=== PATIENT | female | born 1980 | race Caucasian/White ===

== ENCOUNTER 2019-03-13 09:37 | Inpatient (IN) | payer MEDICAID ==
[~2019-03-13] VITALS: Ht 152.4 cm; Wt 72.2 kg
[~2019-03-13 09:37] MED LIST: DEPAKOTE; DEPO PROVERA; LORA-655; OLAN2.5T25; QUET25TA37; TOLT2CAP7; TRAZEDONE; ZOLOFT
[2019-03-13 11:28] LABS: Basophils # (auto) 0 uL; Eosinophils # (auto) 0 uL; Lymphocytes # (auto) 1.2 uL; Monocytes # (auto) 0.6 uL; Neutrophils # (auto) 3.9 uL; White Blood Cell 5.8 10^3/uL (4.4-10.8)
[2019-03-13 11:32] LABS: Basophils % (auto) 0.6 % (0.0-2.0); Hemoglobin 12.7 g/dL (12.2-16.2); Lymphocytes % (auto) 21.5 % (10.0-50.0); Mean Corpuscular Hemoglobin 35.4 pg (28.0-32.0); Mean Corpuscular Hgb Conc. 34.4 g/dL (32.0-36.0); Mean Corpuscular Volume 102.8 fL (80.0-100.0); Neutrophils % (auto) 67.9 % (37.0-80.0); Platelet Count (auto) 154 10^3/uL (140-450); Red Cell Distribution Width 12.6 % (11.8-14.3)
[2019-03-13 11:33] LABS: Urine Bacteria NONE SEEN /hpf (None Seen); Urine Blood Negative /uL (Negative); Urine Mucus FEW (None Seen); Urine Specific Gravity 1.012 (1.001-1.035); Urine WBC 6 /hpf (0 - 5)
[2019-03-13 11:46] LABS: Albumin 3.4 g/dL (3.4-5.0); Calcium 8.4 mg/dL (8.5-10.1); Potassium 3.4 mmol/L (3.5-5.1)
[2019-03-13 11:51] LABS: Bilirubin, Total 0.7 mg/dL (0.2-1.0); Total Protein 7.7 g/dL (6.4-8.2)
[2019-03-13] MEDS ORDERED: IOHEXOL 300 MG/ML 100ML BOTTLE IJ ONE (12:54)
[2019-03-13] MEDS ORDERED: SODIUM CHLORIDE 0.9% 1,000 ML IV ONE (14:00)
[2019-03-13] MEDS ORDERED: LEVOFLOXACIN 500MG 100 ML IV ONE (14:15)
[2019-03-13] MEDS ORDERED: metroNIDAZOLE 500MG/100ML 100 ML IV ONE (14:15)
--- NOTE | 2019-03-13 15:52 | NUR ---
Patient arrived from ER. No report received from ER. Patient is A & O x 4, has some mental delay. Patient c/o pain to the lower R quadrant. Patient has caregiver at bedside. Patient oriented to room, and visiting hours. Patient is ambulatory with min assistance. POC discussed with patient, will medicate per orders. Bed is in lowest, locked position, call light within reach. Vital signs stable, logged in patient chart. Will continue to monitor Q1h and PRN.
--- NOTE | 2019-03-13 16:40 | NUR ---
Dr. Torres called back for Surgical Consult. made aware of the Abd/Pelvis CT results. Dr. Torres ordered a GI Consult, then call him for follow up Surgical Consult.
[2019-03-13] MEDS ORDERED: OLAN10TA29 PO (17:07)
[2019-03-13] MEDS ORDERED: BENZ2TAB2 PO (17:07)
[2019-03-13] MEDS ORDERED: LORA0.5T12 PO (17:07)
[2019-03-13] MEDS ORDERED: SERT-274 PO (17:07)
[2019-03-13] MEDS ORDERED: TRAZ150T79 PO (17:07)
[2019-03-13] MEDS ORDERED: QUET200T44 PO (17:07)
[2019-03-13 17:12] VITALS: BP 118/71
[2019-03-13] MEDS: SOD CHL 0.9%/ KCL 20MEQ 1,000 ML IV SCH (17:44)
[2019-03-13] MEDS: MORPHINE SULF INJ 2 MG/ML SYRINGE 1ML IV PRN (17:52)
--- NOTE | 2019-03-13 18:45 | NUR ---
Patient IV infiltrated, mild erythema, will placed hot compress, and remove IV.
[2019-03-13] MEDS: ONDANSETRON HCL 4 MG/2 ML VIAL IV PRN (20:51)
[2019-03-13 22:00] VITALS: BP 114/84
[2019-03-14] VITALS (7 sets, daily range): BP systolic 111–129; BP diastolic 57–104
[2019-03-14] MEDS: SOD CHL 0.9%/ KCL 20MEQ 1,000 ML IV SCH ×3 (00:45→21:19)
[2019-03-14] MEDS: MORPHINE SULF INJ 2 MG/ML SYRINGE 1ML IV PRN ×4 (01:39→21:24)
[2019-03-14 06:47] LABS: INR 1.06 (0.9-1.15); Partial Thromboplastin Time 27.6 sec (23.64-32.05)
[2019-03-14 06:51] LABS: Magnesium 2.3 mg/dL (1.6-2.6)
[2019-03-14 06:53] LABS: Phosphorus 2.6 mg/dL (2.5-4.90)
--- NOTE | 2019-03-14 07:25 | NUR ---
Opening Shift Note Assumed care of patient, awake and alert. No S/S of distress/SOB or pain. Instructed on POC and to call for assist PRN, bed in lowest position and locked, call light kassandra reach. Will continue to monitor for changes Q1hr and PRN.
--- NOTE | 2019-03-14 12:00 | NUR ---
Dr. Orellana bedside with patient.
[2019-03-14] MEDS ORDERED: FAMOTIDINE (10MG/ML) 2ML VL IV ONE (12:30)
[2019-03-14] MEDS ORDERED: cefTRIAXone 1GM/50ML D5W 50 ML IV ONE (12:30)
--- NOTE | 2019-03-14 13:34 | NUR ---
[facility] [place] bedside with patient. Carried out orders as given.
[2019-03-14] MEDS ORDERED: CLINIMIX PER PHARMACY 0 ML IV SCH (14:00)
[2019-03-14] MEDS: ONDANSETRON HCL 4 MG/2 ML VIAL IV PRN ×2 (15:29→21:24)
[2019-03-14] MEDS: metroNIDAZOLE 500MG/100ML 100 ML IV SCH ×2 (16:29→22:00)
[2019-03-14] MEDS ORDERED: AMINO ACID INFUSION IN D10W 1,000 ML IV ONE (20:00)
[2019-03-15] MEDS ORDERED: DEXTROSE (50%) 50ML SYRG IV SCH
[2019-03-15] MEDS: ONDANSETRON HCL 4 MG/2 ML VIAL IV PRN ×4 (03:34→20:29)
[2019-03-15] MEDS: MORPHINE SULF INJ 2 MG/ML SYRINGE 1ML IV PRN ×4 (03:34→23:56)
[2019-03-15 05:00] VITALS: BP 111/65
[2019-03-15 05:39] LABS: Basophils # (auto) 0 uL; Basophils % (auto) 0.1 % (0.0-2.0); Eosinophils # (auto) 0 uL; Hematocrit 37.7 % (36.0-46.0); Lymphocytes # (auto) 1.5 uL; Lymphocytes % (auto) 34.6 % (10.0-50.0); Mean Corpuscular Hemoglobin 35.4 pg (28.0-32.0); Mean Corpuscular Hgb Conc. 34.4 g/dL (32.0-36.0); Mean Corpuscular Volume 102.7 fL (80.0-100.0); Monocytes # (auto) 0.3 uL; Monocytes % (auto) 7.6 % (0.0-12.0); Neutrophils # (auto) 2.5 uL; Neutrophils % (auto) 57.7 % (37.0-80.0); Platelet Count (auto) 191 10^3/uL (140-450); Red Blood Cells 3.67 10^6/uL (4.0-5.20); White Blood Cell 4.3 10^3/uL (4.4-10.8)
[2019-03-15] MEDS: ACCU-CHEK COMFORT CURVE STRIP VI SCH ×5 (05:54→23:47)
[2019-03-15] MEDS: InsuLIN REG 1unit/0.01ml Soln (100units/ml) SC SCH ×5 (05:55→23:46)
[2019-03-15] MEDS: metroNIDAZOLE 500MG/100ML 100 ML IV SCH ×3 (05:59→22:39)
[2019-03-15 06:02] LABS: Albumin 3.1 g/dL (3.4-5.0); Calcium 8.3 mg/dL (8.5-10.1); Magnesium 2.1 mg/dL (1.6-2.6); Potassium 3.8 mmol/L (3.5-5.1)
[2019-03-15 06:06] LABS: BUN/Creatinine Ratio 9.7; Bilirubin, Total 0.4 mg/dL (0.2-1.0); Phosphorus 2.7 mg/dL (2.5-4.90); Pre Albumin 17.4 mg/dL (20.0-40.0); Total Protein 7.5 g/dL (6.4-8.2)
[2019-03-15] MEDS: SOD CHL 0.9%/ KCL 20MEQ 1,000 ML IV SCH ×3 (06:45→20:00)
[2019-03-15 09:00] VITALS: BP 110/81
[2019-03-15] MEDS: FAMOTIDINE (10MG/ML) 2ML VL IV SCH (09:43)
[2019-03-15] MEDS: cefTRIAXone 1GM/50ML D5W 50 ML IV SCH (09:43)
--- NOTE | 2019-03-15 09:54 | NUR ---
Patient stated she's nauseous and her stomach pain level at 8/10 at this time. Zofran Inj given for nausea, Morphine Sulf Inj 2 mg given for pain.
--- NOTE | 2019-03-15 10:06 | NUR ---
Dr. Orellana at bedside. Patient wants to eat. MD ordered nothing by mouth except ice chips.
--- NOTE | 2019-03-15 10:58 | NUR ---
Patient's mother Apple came over, asking why the patient is still not allowed to eat. Explained to Apple that patient is allowed ice chips by mouth, on Clinimix drip and Potassium drip for rehydration. Apple is frustrated, wants to talk to the doctor.
--- NOTE | 2019-03-15 10:58 | NUR ---
Patient's stepfather Osmar said they need to talk to the doctor because patient has psych medications to take.
--- NOTE | 2019-03-15 10:59 | NUR ---
Paged Dr. Orellana.
--- NOTE | 2019-03-15 11:02 | NUR ---
Dr. Orellana called back. made aware the patient's mother Apple wants to talk to her. said she will come back in two hours. Will inform the mother.
--- NOTE | 2019-03-15 11:08 | NUR ---
Informed patient's mother Apple (P# [phone]) and stepfather Osmar (P# [phone]) that Dr. Orellana she will come back in two hours. Password: "[email or web address]"
--- NOTE | 2019-03-15 11:15 | NUR ---
Nutrition Consult/assessment Notes please see attached link for complete assessment Estimated need based on ABW (60 kg): 4964-6579 kcal (23-25 kcal/kg BW), 60-66 gms protein (1.0-1.1 g/kg BW). Will continue to monitor pertinent labs and reassess nutrient need prn Addendum: 03/15/19 at [address] Amended: Links added.
[2019-03-15] MEDS ORDERED: OMNIPAQUE ORAL SOLN 500ml 12mg/ml PO ONE (11:52)
[2019-03-15] MEDS ORDERED: IOHEXOL 300 MG/ML 100ML BOTTLE IJ ONE (11:52)
--- NOTE | 2019-03-15 12:12 | NUR ---
Assisted the patient with bedpan. Mother and stepfather at bedside.
[2019-03-15 13:00] VITALS: BP 119/84
--- NOTE | 2019-03-15 13:28 | NUR ---
Paged Dr. Orellana again.
--- NOTE | 2019-03-15 14:07 | NUR ---
Dr. Orellana said she will come over to speak with the family in 15 minutes. Informed the patient and family.
--- NOTE | 2019-03-15 14:07 | NUR ---
Spoke with Dr. Orellana that patient's mother Apple and stepfather Osmar are at bedside still waiting for her to come over.
--- NOTE | 2019-03-15 14:08 | NUR ---
Patient's mother Apple confirmed that patient takes the Benztropine, Lorazepam, Olanzapine, Quetiapine, Sertraline and Trazodone at [facility] where the patient resides. List of medications placed in the patient's chart.
--- NOTE | 2019-03-15 14:20 | NUR ---
Dr. Orellana at bedside speaking with the patient's mother Apple and stepfather Osmar. Family has concerns that patient is not getting the routine psych medications she takes at the facility because she's not allowed to eat yet at the hospital. MD explained that patient has to be kept on nothing by mouth, ice chips allowed, tests still being done as ordered and waiting for next plan of care as per [facility] for GI.
--- NOTE | 2019-03-15 14:38 | NUR ---
Patient off unit, taken via wheelchair to Radiology.
--- NOTE | 2019-03-15 15:27 | NUR ---
Zofran Inj given for nausea.
--- NOTE | 2019-03-15 16:01 | NUR ---
Patient stated her stomach and back pain level at 8/10 at this time. Morphine Sulf Inj 2 mg given for pain as ordered.
[2019-03-15 17:00] VITALS: BP 125/83
--- NOTE | 2019-03-15 17:00 | NUR ---
Patient requested that I call her father Laron ([phone]) and her stepmother Carmen ([phone]); both on voicemail. Did not leave a message. Informed the patient.
--- NOTE | 2019-03-15 17:08 | NUR ---
Caregiver Mary Ellen called. Mary Ellen said the lists of medications from the [facility] are the patient's routine medications at the facility. Patient still on nothing by mouth except ice chips. Mary Ellen said she will come over tomorrow to see the patient.
--- NOTE | 2019-03-15 19:30 | NUR ---
Opening Shift Note Assumed care of patient, awake and alert. No S/S of distress/SOB or pain. Bed in lowest locked position, side rails up x2, call light within reach, bed alarm on. Instructed on POC and to call for assist PRN, will continue to monitor for changes Q1hr and PRN.
[2019-03-15] MEDS ORDERED: CLINIMIX PER PHARMACY IV NR ×7 (20:00)
[2019-03-15 21:24] VITALS: BP 135/84
[2019-03-16 05:11] VITALS: BP 120/75
[2019-03-16 06:42] LABS: Albumin 3.2 g/dL (3.4-5.0); BUN/Creatinine Ratio 13.1; Calcium 8.2 mg/dL (8.5-10.1); Magnesium 2.1 mg/dL (1.6-2.6); Potassium 3.7 mmol/L (3.5-5.1)
[2019-03-16 06:44] LABS: Bilirubin, Total 0.4 mg/dL (0.2-1.0); Total Protein 7.7 g/dL (6.4-8.2)
[2019-03-16] MEDS: metroNIDAZOLE 500MG/100ML 100 ML IV SCH ×3 (07:02→21:50)
[2019-03-16] MEDS: ACCU-CHEK COMFORT CURVE STRIP VI SCH ×4 (07:02→23:50)
--- NOTE | 2019-03-16 07:05 | NUR ---
Closing Note Patient lying in bed, eyes closed, respirations even and unlabored, appears asleep. Patient awakens to name and touch. No s/s of distress. Bed in lowest locked position, side rails up x2, call light within reach. Care endorsed to dayshift RN.
--- NOTE | 2019-03-16 07:15 | NUR ---
Opening Shift Note Received report and assumed care of patient, awake and alert. No S/S of distress/SOB or pain. Bed in lowest locked position, side rails up x2, call light within reach, bed alarm on. Instructed on POC and to call for assist PRN, will continue to monitor for changes Q1hr and PRN.
[2019-03-16] MEDS: InsuLIN REG 1unit/0.01ml Soln (100units/ml) SC SCH ×4 (07:16→23:50)
--- NOTE | 2019-03-16 08:00 | NUR ---
patient incontinent with urine,patient instructed to call sooner if needing help or bed nogueira verbalized understanding
[2019-03-16] MEDS: SOD CHL 0.9%/ KCL 20MEQ 1,000 ML IV SCH ×2 (08:30→12:08)
[2019-03-16 09:00] VITALS: BP 128/74
[2019-03-16] MEDS: cefTRIAXone 1GM/50ML D5W 50 ML IV SCH (09:47)
[2019-03-16] MEDS: FAMOTIDINE (10MG/ML) 2ML VL IV SCH (09:47)
[2019-03-16 13:00] VITALS: BP 130/89
[2019-03-16 17:00] VITALS: BP 133/84
--- NOTE | 2019-03-16 17:53 | NUR ---
called Bita (patient mom) no answer left message
--- NOTE | 2019-03-16 18:00 | NUR ---
IV SITE TO LEFT AC INFILTRATED DISCONNECTED,STARTED g#22 TO RIGHT AC
[2019-03-16] MEDS: MORPHINE SULF INJ 2 MG/ML SYRINGE 1ML IV PRN (18:04)
--- NOTE | 2019-03-16 18:50 | NUR ---
called and spoke to Osmar (patient step dad) informed of surgery,got upset wanted to speak to Dr. Torres,called ok to speak to patients Dad Osmar,gave number to manual control auger press operator to connect to Dr. Torres.
--- NOTE | 2019-03-16 19:20 | NUR ---
Opening Shift Note Assumed care of patient, awake and alert x4. No S/S of distress/SOB or pain. Instructed on POC and to call for assist PRN, will continue to monitor for changes Q1hr and PRN. Call light is within reach, side rails up x2, bed is in lowest position.
[2019-03-16] MEDS ORDERED: CLINIMIX PER PHARMACY IV NR ×12 (20:00)
--- NOTE | 2019-03-16 20:31 | NUR ---
IV removal from RFA due to infiltration. IV DC'd with clean sterile technique, catheter fully intact. Pressure dressing applied to site. Patient tolerated well.
--- NOTE | 2019-03-16 21:35 | NUR ---
IV insertion to right hand IV access obtained, via clean sterile technique by inserting 22 gauge catheter at the right hand after 1 attempt(s). IV secured properly. No trauma to site. Patient tolerated well.
[2019-03-16 22:21] VITALS: BP 136/74
[2019-03-17] MEDS: SOD CHL 0.9%/ KCL 20MEQ 1,000 ML IV SCH ×2 (04:54→15:51)
[2019-03-17 05:24] VITALS: BP 142/76
[2019-03-17] MEDS: InsuLIN REG 1unit/0.01ml Soln (100units/ml) SC SCH ×4 (06:00→23:33)
[2019-03-17] MEDS: metroNIDAZOLE 500MG/100ML 100 ML IV SCH ×3 (06:32→21:18)
[2019-03-17] MEDS: ACCU-CHEK COMFORT CURVE STRIP VI SCH ×4 (06:33→23:33)
--- NOTE | 2019-03-17 06:55 | NUR ---
Transported patient to pre-op. Patient's mother and step-dad are with her. No complaints of distress, SOB, or pain. Will endorse care to dayshift RN.
[2019-03-17] MEDS ORDERED: POVIDONE IODINE 5% TOPICAL CREAM TOP ONE (07:01)
[2019-03-17] MEDS ORDERED: ceFAZolin 1GM/50ML 50 ML IV ONE (07:03)
--- NOTE | 2019-03-17 07:15 | NUR ---
Opening Shift Note Report received and assumed care of patient,patient off unit in O.R.
[2019-03-17 07:22] LABS: Albumin 3.4 g/dL (3.4-5.0); BUN/Creatinine Ratio 16.1; Calcium 8.5 mg/dL (8.5-10.1); Magnesium 2.2 mg/dL (1.6-2.6); Phosphorus 3.7 mg/dL (2.5-4.90); Potassium 3.6 mmol/L (3.5-5.1); Total Protein 7.9 g/dL (6.4-8.2)
[2019-03-17 07:26] LABS: Bilirubin, Total 0.5 mg/dL (0.2-1.0)
--- NOTE | 2019-03-17 07:35 | NUR ---
PATIENT COMING BACK FROM OPS,PER SAMIRA OPS CANNING MACHINE OPERATOR HOLD , PATIENT NEEDING CARDIAC CLEARANCE
--- NOTE | 2019-03-17 07:38 | NUR ---
DR. JANG (ANESTHESOLOGIST) CALLED RECEIVED ORDER FOR ECHOCARDIOGRAM AND TO CONSULT ELECTRICITY TRADING ANALYST FOR CARDIAC CLEARANCE,SEE WRITTEN ORDERS.
[2019-03-17 09:00] VITALS: BP 132/75
[2019-03-17] MEDS: FAMOTIDINE (10MG/ML) 2ML VL IV SCH (10:47)
[2019-03-17] MEDS: cefTRIAXone 1GM/50ML D5W 50 ML IV SCH (10:48)
--- NOTE | 2019-03-17 12:25 | NUR ---
Nutrition Follow-up Notes Wt.: 55.7 kg based on bed scale as of yesterday Pt's with family members talking to MD at bedside during rounds this morning. Pt's no signs of distress noted by RN earlier, currently NPO with Clinimix @ 42 ml/hr providing 510 kcal, 340 NPCs and 42.5 gms pro. Pt with inadequate PN support d/t low initiation rate delivery of diluted formula aeb current PN infusion meets 34% to 37% of est caloric needs and 64% to 71% of est protein needs. Noted pt's to receive tonight another Clinimix @ same rate and for active GI and Cardiology consults. Estimated need based on ABW (60 kg): 6569-2063 kcal (23-25 kcal/kg BW), 60-66 gms protein (1.0-1.1 g/kg BW). Will continue to monitor pertinent labs and reassess nutrient need prn Labs: Pertinent labs today wnl except for Gluc 107 H, Cl 113 H ; Prealb 17.4 L, Trig 86 wnl Skin: Ashish scale 18, mod risk, skin intact per soot blower. GI: Pt had 4x BM this morning per soot blower. PES: Increased nutrient needs r/t altered GI functions aeb colitis and NPO with PN support. Altered nutrition related lab values r/t current/chronic medical condition aeb hypocalcemia, mild hypoalb Will continue to monitor NPO status, PN tolerance, skin status, pertinent labs and weight trend. F/u in 2 to 3 days. Rec.: 1.) If still NPO with PN support, consider gradual increase on calories and protein to meet at least 75% of est nutrient needs. 2.) Advance gradually to oral diet when medically appropriate. 3.) Refer pt to RD for further nutrition education and weight monitoring upon discharge. 4.) Continue current plan of care.
[2019-03-17 13:00] VITALS: BP 147/74
--- NOTE | 2019-03-17 14:00 | NUR ---
SPOKE TO LYN CON[facility] [place] RE CARDIAC CLEARANCE,STATED ECHO IS BEING READ,WILL INFORM ONCE PATIENT IS CLEAR.
[2019-03-17 17:09] VITALS: BP 135/75
--- NOTE | 2019-03-17 18:30 | NUR ---
Patient oob ambulated in hallway assisted by ALEX
--- NOTE | 2019-03-17 19:20 | NUR ---
No distress no discomfort,report given to incoming noc shift RN
[2019-03-17] MEDS ORDERED: CLINIMIX PER PHARMACY IV NR ×7 (20:00)
[2019-03-17] MEDS: ONDANSETRON HCL 4 MG/2 ML VIAL IV PRN (21:18)
[2019-03-17 22:00] VITALS: BP 125/76
--- NOTE | 2019-03-18 02:12 | NUR ---
IV removal from RFA due to infiltration IV DC'd with clean sterile technique, catheter fully intact. Pressure dressing applied to site. Patient tolerated well.
[2019-03-18 05:00] VITALS: BP 116/80
--- NOTE | 2019-03-18 05:47 | NUR ---
IV insertion TO LEFT WRIST IV access obtained, via clean sterile technique by inserting 22 gauge catheter at the left wrist after 3 attempt(s). IV secured properly. No trauma to site. Patient tolerated well.
[2019-03-18] MEDS: InsuLIN REG 1unit/0.01ml Soln (100units/ml) SC SCH ×3 (06:00→17:43)
[2019-03-18] MEDS: metroNIDAZOLE 500MG/100ML 100 ML IV SCH ×3 (06:13→21:52)
[2019-03-18] MEDS: ACCU-CHEK COMFORT CURVE STRIP VI SCH ×3 (06:13→17:43)
[2019-03-18] MEDS: SOD CHL 0.9%/ KCL 20MEQ 1,000 ML IV SCH ×2 (06:14→17:49)
--- NOTE | 2019-03-18 07:00 | NUR ---
Patient transferred to pre-op with family at bedside. No complaints of pain or distress noted.
[2019-03-18] MEDS ORDERED: ceFAZolin 1GM/50ML 50 ML IV ONE (07:01)
--- NOTE | 2019-03-18 07:43 | NUR ---
RECEIVED REPORT AND ASSUMED CARE OF PT. PT OFF UNIT TO OR.
[2019-03-18] MEDS ORDERED: SUCCINYLCHOLINE CHLORIDE 20 MG/ML 10ML VIAL IV ONE (07:44)
[2019-03-18] MEDS ORDERED: LIDOCAINE 1% HCL (LOCAL ANESTH.) INJ 20ML MDV ONE (07:44)
[2019-03-18] MEDS ORDERED: ETOMIDATE (2MG/ML) 20ML VIAL IV ONE (07:46)
[2019-03-18] MEDS ORDERED: ROCURONIUM 10MG/ML 10ML VIAL IV ONE (07:46)
[2019-03-18] MEDS ORDERED: MIDAZOLAM HCL 1MG/1ML-2 ML VIAL ONE (07:46)
[2019-03-18] MEDS ORDERED: PHENYLEPHRINE HCL 10 MG/ML VL ONE (07:50)
[2019-03-18] MEDS ORDERED: SODIUM CHLORIDE LOCK 10 ML ONE (07:50)
[2019-03-18] MEDS ORDERED: fentaNYL CITRATE 100 MCG/2 ML VL ONE (08:00)
[2019-03-18] MEDS ORDERED: HYDROmorphone HCL 2 MG/ML VL IV PRN ×2 (08:15)
[2019-03-18] MEDS ORDERED: NALOXONE HCL 0.4 MG/ML VIAL IV PRN (08:15)
[2019-03-18] MEDS ORDERED: NEOSTIGMINE 1 MG/ML INJ (10mg/10ML VIAL) ONE (08:25)
[2019-03-18] MEDS ORDERED: GLYCOPYRROLATE 0.2 MG/ML 1ML VIAL ONE (08:25)
[2019-03-18] MEDS ORDERED: METOCLOPRAMIDE HCL 5MG/ml INJ 2ml VIAL ONE (08:56)
[2019-03-18] MEDS ORDERED: METOCLOPRAMIDE HCL 5MG/ml INJ 2ml VIAL IV ONE (09:00)
--- NOTE | 2019-03-18 10:32 | NUR ---
PT BACK FROM OR. A/OX4. DENIED S/S ACUTE DISTRESS. ABD INCISIONS X3 DRESSINGS C/D/I. ABD BINDER IN PLACE. WILL CONT TO MONITOR.
[2019-03-18] MEDS: cefTRIAXone 1GM/50ML D5W 50 ML IV SCH (11:40)
[2019-03-18] MEDS: FAMOTIDINE (10MG/ML) 2ML VL IV SCH (11:41)
[2019-03-18] MEDS: MORPHINE SULF INJ 2 MG/ML SYRINGE 1ML IV PRN (11:41)
[2019-03-18 13:00] VITALS: BP 139/73
[2019-03-18 15:54] LABS: Eosinophils # (auto) 0 uL; Eosinophils % (auto) 0.1 % (0.0-7.0); Lymphocytes # (auto) 1.1 uL; Neutrophils # (auto) 4.5 uL
[2019-03-18 15:58] LABS: Basophils # (auto) 0.1 uL; Basophils % (auto) 1.1 % (0.0-2.0); Hematocrit 40.4 % (36.0-46.0); Hemoglobin 13.5 g/dL (12.2-16.2); Lymphocytes % (auto) 17.4 % (10.0-50.0); Mean Corpuscular Hemoglobin 34.8 pg (28.0-32.0); Mean Corpuscular Hgb Conc. 33.5 g/dL (32.0-36.0); Mean Corpuscular Volume 103.8 fL (80.0-100.0); Monocytes # (auto) 0.6 uL; Monocytes % (auto) 9.4 % (0.0-12.0); Platelet Count (auto) 211 10^3/uL (140-450); Red Blood Cells 3.89 10^6/uL (4.0-5.20); Red Cell Distribution Width 12.4 % (11.8-14.3); White Blood Cell 6.3 10^3/uL (4.4-10.8)
[2019-03-18 16:11] LABS: Albumin 3.2 g/dL (3.4-5.0); BUN/Creatinine Ratio 21.2; Calcium 8.3 mg/dL (8.5-10.1); Magnesium 2.1 mg/dL (1.6-2.6); Phosphorus 3.3 mg/dL (2.5-4.90); Potassium 3.6 mmol/L (3.5-5.1)
[2019-03-18 16:14] LABS: Bilirubin, Total 0.4 mg/dL (0.2-1.0); Total Protein 7.6 g/dL (6.4-8.2)
[2019-03-18 17:00] VITALS: BP 134/73
--- NOTE | 2019-03-18 19:16 | NUR ---
PT RESTING IN BED. NO S/S ACUTE DISTRESS NOTED. ENDORSED CARE TO NIGHT NURSE.
[2019-03-18] MEDS ORDERED: CLINIMIX PER PHARMACY IV NR ×7 (20:00)
[2019-03-18 22:00] VITALS: BP 131/91
--- NOTE | 2019-03-18 22:14 | NUR ---
ASSISTED PATIENT ON BEDPAN. PATIENT TOLERATED WELL. NO BM. WILL TRY IT LATER. CONTINUE CARE.
[2019-03-19] MEDS: ACCU-CHEK COMFORT CURVE STRIP VI SCH ×5 (00:13→23:59)
--- NOTE | 2019-03-19 00:14 | NUR ---
ACCU-CHECK, BS 129. NO COVERAGE. CONTINUE TO MONITOR.
--- NOTE | 2019-03-19 03:55 | NUR ---
PATIENT SLEEPING. NO S/S OF DISTRESS NOTED. CONTINUE CARE.
[2019-03-19] MEDS: SOD CHL 0.9%/ KCL 20MEQ 1,000 ML IV SCH ×2 (05:10→21:50)
[2019-03-19 05:38] VITALS: BP 130/81
[2019-03-19] MEDS: metroNIDAZOLE 500MG/100ML 100 ML IV SCH ×3 (05:50→22:00)
[2019-03-19] MEDS: InsuLIN REG 1unit/0.01ml Soln (100units/ml) SC SCH ×5 (05:51→23:59)
--- NOTE | 2019-03-19 05:51 | NUR ---
ACCU-CHECK, BS 146. INSULIN GIVEN ORDERED. CONTINUE TO MONITOR.
--- NOTE | 2019-03-19 06:17 | NUR ---
PATIENT HAD BM. CLEANED PATIENT, TOTAL LINEN AND PATIENT GOWN CHANGED. PATIENT TOLERATED WELL. STOOL SAMPLE COLLECTED AND SENT. CONTINUE TO MONITOR.
--- NOTE | 2019-03-19 06:48 | NUR ---
SALES PROMOTION COORDINATOR AT BEDSIDE
[2019-03-19 07:24] LABS: Basophils # (auto) 0 uL; Eosinophils # (auto) 0 uL; Lymphocytes # (auto) 1.1 uL; Monocytes # (auto) 0.5 uL
[2019-03-19 07:25] LABS: Basophils % (auto) 0.3 % (0.0-2.0); Hematocrit 40.7 % (36.0-46.0); Hemoglobin 13.7 g/dL (12.2-16.2); Mean Corpuscular Hemoglobin 35.1 pg (28.0-32.0); Mean Corpuscular Hgb Conc. 33.7 g/dL (32.0-36.0); Monocytes % (auto) 9.1 % (0.0-12.0); Neutrophils # (auto) 3.9 uL; Neutrophils % (auto) 70.6 % (37.0-80.0); Platelet Count (auto) 234 10^3/uL (140-450); Red Blood Cells 3.91 10^6/uL (4.0-5.20); Red Cell Distribution Width 12.5 % (11.8-14.3); White Blood Cell 5.5 10^3/uL (4.4-10.8)
[2019-03-19 07:43] LABS: Albumin 3.2 g/dL (3.4-5.0); BUN/Creatinine Ratio 15.2; Calcium 8.1 mg/dL (8.5-10.1); Magnesium 2.3 mg/dL (1.6-2.6); Phosphorus 2.1 mg/dL (2.5-4.90); Potassium 3.5 mmol/L (3.5-5.1)
[2019-03-19 07:45] LABS: Bilirubin, Total 0.5 mg/dL (0.2-1.0); Total Protein 7.6 g/dL (6.4-8.2)
--- NOTE | 2019-03-19 07:59 | NUR ---
Opening Note Assumed pt care from [facility] nurse. Pt is a/ox4 with no s/s of distress or SOB. Pt is currently laying upright in bed with no complaints other than mild pain from IV site. Assessed abdominal site; dressings are clean, dry and intact. Pt states that she has mild abdominal pain but does not request any pain medication at this time. Abdominal binder is on and IS is at bedside. Discussed POC with pt; pt verbalized understanding. Safety measures maintained with call light within reach, bed in lowest position and side rails up. Will continue to monitor for changes q1hr and prn.
[2019-03-19] MEDS: cefTRIAXone 1GM/50ML D5W 50 ML IV SCH (08:55)
[2019-03-19 09:00] VITALS: BP 136/90
[2019-03-19] MEDS ORDERED: POTASSIUM PHOSP 22MEQ(15MMOLE) in NS 100 ML IV ONE (10:00)
[2019-03-19] MEDS: FAMOTIDINE (10MG/ML) 2ML VL IV SCH (10:18)
--- NOTE | 2019-03-19 10:40 | NUR ---
assessment Patient is a 38 year old female who is answering appropriately. Prior to admission patient lived in a [place] [facility] and functioned with assistance of her caregiver. Per patient she will return home on discharge. 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 Patient informed me the [facility] has provided her with her caregiver and placement. Patient informed me her PCP is Dr Anderson at [facility]. Patient informed me she has no need for DME. Patient has no post discharge needs at this time. I informed patient she has a right to speak to a psychotherapist social worker regarding all care. I informed patient she has a right to participate in any and all discharge planning. Patient does not have a POA and advanced directive. I have offered patient information on POA and advanced directives. I informed the patient the advantages and benefits of having an Advanced Directive. Patient verbalized understanding and agreed to discharge plan. Addendum: 03/19/19 at 1045 by Abril LYONS Amended: Links added.
[2019-03-19] MEDS: MORPHINE SULF INJ 2 MG/ML SYRINGE 1ML IV PRN (11:20)
--- NOTE | 2019-03-19 11:28 | NUR ---
Nutrition Follow-up Notes Wt.: 55.7 kg Pt`s sleeping with no family by beside. per records pt s/p appy. pt is now advanced to soft diet with inadequate PO of 25% x 3 per RN doc along with Clinimix @ 42 ml/hr providing 510 kcal, 340 NPCs and 42.5 gms pro. Pt with inadequate PN support d/t low initiation rate delivery of diluted formula aeb current PN infusion meets 34% to 37% of est caloric needs and 64% to 71% of est protein needs. Estimated need based on ABW (60 kg): 9914-3854 kcal (23-25 kcal/kg BW), 60-66 gms protein (1.0-1.1 g/kg BW). Will continue to monitor pertinent labs and reassess nutrient need prn Labs: GLU 147 H, CA 8.1 L, ALB 3.2 L. Skin: Ashish scale 17, mod risk incision at site of sx per curing oven tender. GI: Pt had 1 BM this morning per curing oven tender. PES: Increased nutrient needs r/t altered GI functions aeb colitis and NPO with PN support. Altered nutrition related lab values r/t current/chronic medical condition aeb hypocalcemia, mild hypoalb Will continue to monitor PO intake, PN tolerance, skin status, pertinent labs and weight trend. F/u in 2 to 3 days. Rec.: 1.) Consider ensure enlive 1 carton bid as PO is low. 2) taper off PN sup[port as PO improves and pt tolerate PO. 3) Refer pt to RD for further nutrition education and weight monitoring upon discharge. 4.) Continue current plan of care.
--- NOTE | 2019-03-19 12:10 | NUR ---
IV D/C'ed IV to pt's L hand removed due to infiltration. IV removed fully intact, site is asymptomatic and pt tolerated well. Gauze applied to site for 3 minutes and then wrapped in coban. Pt instructed to keep dressing on hand for 30 minutes. Pt verbalized understanding. Hand elevated on pillow and ice pack applied per pt's request. Will continue to monitor.
--- NOTE | 2019-03-19 12:52 | NUR ---
Pt Tolerating Advancement of Diet Will continue to monitor how pt tolerates advancement.
[2019-03-19 13:00] VITALS: BP 137/88
[2019-03-19 16:42] VITALS: BP 138/76
--- NOTE | 2019-03-19 19:50 | NUR ---
Opening Shift Note Assumed care of patient, alert and oriented x4 with periods of confusion. On room air and bedrest. Incontinent to bowel and bladder. ABD binder in place, dressing to incision site CDI. Bed in lowest locked position, side rails up x2, call light within reach. No S/S of distress/SOB or pain. Instructed on POC and to call for assist PRN, will continue to monitor for changes Q1hr and PRN.
[2019-03-19] MEDS ORDERED: CLINIMIX PER PHARMACY IV NR ×7 (20:00)
[2019-03-19 22:00] VITALS: BP 129/81
[2019-03-20 05:00] VITALS: BP 130/82
[2019-03-20] MEDS: ACCU-CHEK COMFORT CURVE STRIP VI SCH ×2 (05:41→11:44)
[2019-03-20] MEDS: InsuLIN REG 1unit/0.01ml Soln (100units/ml) SC SCH ×2 (05:41→11:44)
[2019-03-20] MEDS: metroNIDAZOLE 500MG/100ML 100 ML IV SCH (05:50)
--- NOTE | 2019-03-20 07:41 | NUR ---
Opening Note Assumed pt care from [facility] nurse. Pt is a/ox4 with no s/s of distress or SOB. Pt is currently sitting upright in bed with no complaints other than mild irritation from IV site. Discussed POC with pt; pt verbalized understanding. Pt is tolerating advancement of diet well. Safety measures maintained with call light within reach, bed in lowest position and side rails up. Will continue to monitor for changes q1hr and prn.
[2019-03-20 08:23] LABS: Albumin 3.1 g/dL (3.4-5.0); Calcium 8.2 mg/dL (8.5-10.1); Magnesium 2.1 mg/dL (1.6-2.6); Potassium 3.4 mmol/L (3.5-5.1)
[2019-03-20 08:29] LABS: BUN/Creatinine Ratio 19.1; Bilirubin, Total 0.4 mg/dL (0.2-1.0); Phosphorus 3.3 mg/dL (2.5-4.90); Total Protein 7.1 g/dL (6.4-8.2)
[2019-03-20] MEDS: cefTRIAXone 1GM/50ML D5W 50 ML IV SCH (08:57)
[2019-03-20 09:00] VITALS: BP 140/82
[2019-03-20] MEDS: FAMOTIDINE (10MG/ML) 2ML VL IV SCH (10:13)
--- NOTE | 2019-03-20 10:13 | NUR ---
Dr Zacarias at Bedside Plans to D/C pt today home. Pt is complaining of some mild discomfort in abdominal site. Rell would like Dr Torres to assess pt one more time before clearance to home. Will page Melissa to assess pt. At this time I will provide pain medication and continue to assess needs.
[2019-03-20] MEDS ORDERED: POTASSIUM CHL 20 Meq TABLET PO ONE (10:15)
[2019-03-20] MEDS: MORPHINE SULF INJ 2 MG/ML SYRINGE 1ML IV PRN (10:27)
[2019-03-20] MEDS ORDERED: METR500T PO (10:57)
[2019-03-20] MEDS ORDERED: LEVO500T21 PO (10:57)
[2019-03-20] MEDS ORDERED: LORazepam 0.5 MG TAB PO ONE (11:00)
--- NOTE | 2019-03-20 11:37 | NUR ---
Page Dr Torres for Surgical Clearance Paged back and stated that he saw pt; okay to d/c. Will follow through.
--- NOTE | 2019-03-20 11:48 | NUR ---
Called Mother Apple for Update Spoke to pt's mother about d/c orders and plan to transfer pt back to snf. Apple is now aware of the d/c and aware that pt will go back to snf.
--- NOTE | 2019-03-20 11:49 | NUR ---
Called Skilled Nursing Spoke to Mary Ellen at [facility]. They are aware of pt's d/c orders. They stated that they just need to be informed when pt is ready for d/c and will come to molded goods spot picker pt. Informed pt that I will call neil when pt is ready. Voiced understanding.
--- NOTE | 2019-03-20 12:38 | NUR ---
IV D/C'ed IV removed from pt's R hand. Catheter removed fully intact. Site is asymptomatic. Pressure applied to site with gauze for 3 minutes and then wrapped in coban. Pt instructed to keep dressing on for 30 minutes. Pt verbalized understanding.
--- NOTE | 2019-03-20 12:39 | NUR ---
Called [facility] Pt is Ready for D/C Called [facility] [place], , they are aware pt is ready and on there way to forklift picker pt.
--- NOTE | 2019-03-20 13:10 | NUR ---
Chcf backup engineer Pt Wayne from [facility] came to picking machine operator helper [facility]. Wayne signed for the pt given that pt could not sign and Wayne is one of her caregivers. All discharge information was educated to the pt as well as caregiver. Caregiver aware of new prescriptions, the pt's pharmacy, as well as follow up appointments.
--- NOTE | 2019-03-20 13:13 | NUR ---
Pt D/C'ed Off Unit Pt was d/c'ed off unit via wheelchair accompanied by her caregiver Wayne. Pt has all belongings, all education material, follow up appointment information as well as prescriptions. IV was D/C'ed. All questions were answered.
== END 2019-03-20 13:10 | disposition home or self-care (01) | DRG 710 ==
LOC: ER 09:37 → OVERFLOW 09:38 → CENTRAL 15:55
PROVIDERS: ADMIT Hospitalist; ATTEND Internal Medicine
PROC: 0DTJ4ZZ Resection of Appendix, Percutaneous Endoscopic Approach (ICD-10-PCS; principal; 2019-03-18 07:34)
DX: A41.9 Sepsis, unspecified organism (principal); F20.9 Schizophrenia, unspecified; I31.3 Pericardial effusion (noninflammatory); I50.22 Chronic systolic (congestive) heart failure; Q93.82 Williams syndrome; K35.80 Unspecified acute appendicitis; K52.9 Noninfective gastroenteritis and colitis, unspecified; K38.1 Appendicular concretions; F32.9 Major depressive disorder, single episode, unspecified; F17.210 Nicotine dependence, cigarettes, uncomplicated; F41.9 Anxiety disorder, unspecified; R00.0 Tachycardia, unspecified; Z88.8 Allergy status to other drugs, medicaments and biological substances; Z79.899 Other long term (current) drug therapy
CPT/HCPCS: 36415; 74176; 74177; 80053; 81001; 81025; 82040; 82270; 82962; 83735; 84100; 84132; 84478; 85025; 85610; 85730; 86850; 86900; 86901; 87040; 87045; 87086; 87427; 87493; 93005; 93306; 96361; 96365; 96367; 96375; G0378; J0330; J0690; J0696; J1815; J1956; J2001; J2250; J2405; J3480; J3490

== ENCOUNTER 2023-09-10 09:22 | Emergency (ER) | payer MEDICAID ==
[~2023-09-10] VITALS: Ht 154.9 cm; Wt 70.0 kg
[~2023-09-10 09:22] MED LIST changes: +BENZ2TAB50 PO; -DEPAKOTE; -DEPO PROVERA; +LEVO500T31 PO; +LORA-1121 PO; -LORA-655; +METR500T PO; +OLAN1TAB19 PO; -OLAN2.5T25; +QUET200T45 PO; -QUET25TA37; +SERT-206 PO; -TOLT2CAP7; +TRAZ1TAB12 PO; -TRAZEDONE; -ZOLOFT
[2023-09-10] MEDS: traMADol HCL 50 MG TAB PO ONE (11:08)
[2023-09-10 12:25] LABS: Urine Bacteria FEW /hpf (None Seen); Urine Blood Negative /uL (Negative); Urine Budding Yeast OCCASIONAL /hpf (None Seen); Urine Clarity Clear (Clear); Urine Color Light-Yellow (Yellow); Urine Protein, UAD TRACE (Negative); Urine Specific Gravity 1.017 (1.001-1.035); Urine Urobilinogen Normal (Negative); Urine WBC 4 /hpf (0 - 5)
[2023-09-10] MEDS ORDERED: CIPR-173 PO (12:31)
[2023-09-10 13:44] VITALS: BP 136/82; PULSE 100; RESP 18; TEMP 98.4; O2SAT 100
== END 2023-09-10 13:46 | disposition home or self-care (01) ==
LOC: ER 09:22
DX: N39.0 Urinary tract infection, site not specified (principal); M79.18 Myalgia, other site; Z88.6 Allergy status to analgesic agent
CPT/HCPCS: 81001